=== PATIENT | female | born 1950 | race Hispanic/Latino ===

== ENCOUNTER 2024-03-15 07:45 | Emergency (ER) | payer OTHER, MEDICARE ==
[~2024-03-15] VITALS: Ht 149.9 cm; Wt 56.7 kg
[2024-03-15] MEDS ORDERED: TOBRDOS OD (08:25)
[2024-03-15] MEDS ORDERED: TETRACAINE HCL 0.5% 4 ML OPHTH SOLN OP SCH (08:30)
[2024-03-15 08:39] VITALS: BP 130/55; PULSE 89; RESP 19; O2SAT 98
== END 2024-03-15 08:40 | disposition home or self-care (01) ==
LOC: EDH 07:45
DX: T15.91XA Foreign body on external eye, part unspecified, right eye, initial encounter (principal); H10.9 Unspecified conjunctivitis; I10 Essential (primary) hypertension